=== PATIENT | female | born 1965 | race Caucasian/White ===

== ENCOUNTER 2016-09-23 09:56 | Outpatient (CLI) | payer OTHER ==
[~2016-09-23 09:56] MED LIST: BUSP10TA3 PO; CLON0.5T4 PO; DICL50TA9 PO; ESCI20TA PO; LOSA100T11 PO; NORCO5 PO; VALA500T PO
== END 2016-09-23 19:22 | disposition home or self-care (01) ==
LOC: SMA 09:56
PROVIDERS: ATTEND Family Medicine
DX: Z12.31 Encounter for screening mammogram for malignant neoplasm of breast (principal)
CPT/HCPCS: G0202

== ENCOUNTER 2017-11-26 14:11 | Outpatient (CLI) | payer OTHER ==
[~2017-11-26 14:11] MED LIST changes: +CLON0.5T12 PO; -CLON0.5T4 PO; -LOSA100T11 PO; +LOSA100T3 PO
== END 2017-11-26 20:12 | disposition home or self-care (01) ==
LOC: SMA 14:11
PROVIDERS: ATTEND Family Medicine
DX: Z12.31 Encounter for screening mammogram for malignant neoplasm of breast (principal)
CPT/HCPCS: 77067

== ENCOUNTER 2017-12-17 09:17 | Outpatient (CLI) | payer OTHER | END 2017-12-17 18:52 | disposition home or self-care (01) | LOC: SMA 09:17 | PROVIDERS: ATTEND Family Medicine | DX: R92.8 Other abnormal and inconclusive findings on diagnostic imaging of breast (principal) | CPT/HCPCS: 77065 ==

== ENCOUNTER 2018-12-02 11:50 | Outpatient (CLI) | payer OTHER | END 2018-12-02 19:47 | disposition home or self-care (01) | LOC: SMA 11:50 | PROVIDERS: ATTEND Family Medicine | DX: Z12.31 Encounter for screening mammogram for malignant neoplasm of breast (principal) | CPT/HCPCS: 77067 ==